=== PATIENT | female | born 1990 | race Two or more races ===

== ENCOUNTER 2021-04-07 22:53 | Inpatient (IN) | payer OTHER ==
[~2021-04-07] VITALS: Ht 162.6 cm; Wt 54.4 kg
--- NOTE | 2021-04-07 23:05 | NUR ---
pt bib ra is s/p sz. pt a/o c/o stomach ache. pt able to speak in complete sentences. able to steward. Dr. Cody at bedside for MSE.
[2021-04-07] MEDS ORDERED: IV NS 1000 ML 1,000 ML IV ONE (23:15)
[2021-04-07] MEDS ORDERED: HYDROMORPHONE 1 MG/1 ML DISP.SYRIN IV ONE (23:45)
[2021-04-07] MEDS ORDERED: ONDANSETRON 4 MG/2 ML VIAL IV ONE (23:45)
[2021-04-08 00:27] LABS: HEMATOCRIT 29.9 % (31.2-41.9); MEAN CORPUSCULAR HEMOGLOBIN 28.6 uug (24.7-32.8); MEAN CORPUSCULAR VOLUME 86.6 fL (75.5-95.3); PLATELET COUNT (AUTO) 462 K/uL (179-408)
--- NOTE | 2021-04-08 00:30 | NUR ---
pt taken to ct scan.
[2021-04-08 00:34] LABS: CARBON DIOXIDE 22 mmol/L (21-32); CHLORIDE 101 mmol/L (98-107); CREATININE 1.2 mg/dL (0.6-1.3); GLUCOSE 255 mg/dL (74-106); POTASSIUM 3.4 mmol/L (3.5-5.1); UREA NITROGEN, BLOOD 10 mg/dL (7-18)
[2021-04-08] MEDS ORDERED: HYDROMORPHONE 1 MG/1 ML DISP.SYRIN ONE ×5 (00:35→15:56)
[2021-04-08] MEDS ORDERED: ONDANSETRON 4 MG/2 ML VIAL ONE (00:35)
[2021-04-08] MEDS ORDERED: levETIRAcetam 500 MG/5 ML VIAL IV ONE (00:35)
[2021-04-08 00:39] LABS: ETHANOL < 3 MG/DL (0-0)
[2021-04-08 00:44] LABS: ALANINE AMINOTRANSFERASE 40 U/L (14-59); ALKALINE PHOSPHATASE 230 U/L (50-136); ASPARTATE AMINOTRANSFERASE 35 U/L (15-37); BILIRUBIN,DIRECT < 0.1 mg/dL (0.0-0.2); BILIRUBIN,TOTAL 0.4 mg/dL (0.2-1.0); TOTAL PROTEIN, SERUM 8.2 g/dL (6.4-8.2)
--- NOTE | 2021-04-08 00:44 | NUR ---
pt has returned from cat scan.
[2021-04-08 00:52] LABS: LIPASE 54 U/L (73-393)
[2021-04-08] MEDS: levETIRAcetam IV 1,000 MG in IV DEXTROSE 5% 100 ML IV SCH ×3 (00:52→20:34)
[2021-04-08] MEDS ORDERED: HYDROMORPHONE 1 MG/1 ML DISP.SYRIN IV ONE ×4 (01:45→15:30)
--- NOTE | 2021-04-08 02:07 | NUR ---
Dr Cody spoke with Dr. Hayes who will accept patient at [facility].
[2021-04-08] MEDS ORDERED: AZITHROMYCIN IV 500 MG in IV DEXTROSE 5% 250 ML IV ONE (02:15)
[2021-04-08] MEDS ORDERED: CEFTRIAXONE 1 G in IV DEXTROSE 5% 50 ML IV ONE (02:15)
[2021-04-08] MEDS ORDERED: AZITHROMYCIN 500MG/ D5W 250ML IVPB **ER PYXIS ONLY IV ONE (03:25)
[2021-04-08] MEDS ORDERED: CEFTRIAXONE /D5W 50ML IVPB **ER PYXIS IV ONE (03:25)
[2021-04-08] MEDS ORDERED: LORAZEPAM 2 MG/1 ML VIAL IV ONE (03:45)
--- NOTE | 2021-04-08 06:25 | NUR ---
after second liter of fluid pt blood pressure in the 90's. pt a/o denies pain at this time.
[2021-04-08] MEDS ORDERED: IV NS 1000 ML 1,000 ML IV ONE (06:30)
[2021-04-08] MEDS ORDERED: FENTANYL CITRATE 100 MCG/2 ML AMPUL IV ONE ×3 (07:15→11:15)
[2021-04-08] MEDS ORDERED: FENTANYL CITRATE 100 MCG/2 ML AMPUL ONE ×3 (07:30→11:21)
--- NOTE | 2021-04-08 08:30 | NUR ---
Discussed low BP with provider. Seems to be pt normal average reading. Pt continues to be A&Ox4, responding appropriately, fluently conversational. Denies any KUMAR, dizziness, blurred vision, anxiousness or drowsiness. Will continue to monitor pt and BP reading periodically. Pt also requires pain management. Provided heating pack and will monitor BP along with medication administration.
[2021-04-08] MEDS ORDERED: IV NORMAL SALINE 1000 ML BAG IV ONE (11:45)
[2021-04-08] MEDS ORDERED: Z GUARD REMEDY PASTE 57 GM TUBE TOP PRN (12:15)
[2021-04-08] MEDS ORDERED: MAGNESIUM HYDROXIDE 30 ML LIQUID UDC PO PRN (12:15)
[2021-04-08] MEDS ORDERED: ONDANSETRON 4 MG/2 ML VIAL IV PRN (12:15)
[2021-04-08] MEDS ORDERED: ACETAMINOPHEN 325 MG TABLET PO PRN (12:15)
--- NOTE | 2021-04-08 12:23 | NUR ---
Pt states better control of medication post dilaudid administration. IV fluids given to support BP. Pt alert, oriented, and responsive to stimuli.
[2021-04-08] MEDS ORDERED: ONDANSETRON 4 MG/2 ML VIAL IV ONE (15:30)
--- NOTE | 2021-04-08 16:03 | NUR ---
Report called to DORIS Golden. Pt will be going to Rm 319. Pt in stable condition. A&Ox4, conversational and responds appropriatelly.
--- NOTE | 2021-04-08 16:03 | NUR ---
received report from ER
--- NOTE | 2021-04-08 16:30 | NUR ---
Pt taken to 3rd floor via gurney, in stable condition. Hand-off at bedside with DORIS Golden. Pt ambulated from gurney in the hallway to the bed in the room with steady gait.
--- NOTE | 2021-04-08 16:30 | NUR ---
patient arrived via gurney from ER to room 319. patient is alert and oriented x4 able to make needs known. patient is able to ambulate with steady gate. respirations even and non-labored, no c/o sob at this time. lungs clear bilateral. patient currently on child monitor showing normal sinus rhythm. upon admission patient with v/s wnl. patient has a scar to mid abdomen and a colostomy to the right side of the abdomen stool is soft formed and brown in color, no other skin problems. patient is strong in all extremities, able to ambulate to the restroom. patient with c/o abdominal pain reminded patient she received pain medication one hour ago and it is too close to administration. belongings inventory completed. percocet and zofran medication vials taken to the pharmacy with appropriate form. all admission documentation completed. seizure precautions in place. room tour given to patient, reminded patient to call for assistance, call light within reach, side rails up x2.
[2021-04-08 16:35] VITALS: BP 98/58
[2021-04-08] MEDS: IV 1/2NS 1000 ML 1,000 ML IV PRN (16:43)
[2021-04-08] MEDS ORDERED: HYDR4TAB4 PO (17:00)
[2021-04-08] MEDS ORDERED: OXYC-133 PO (17:00)
[2021-04-08] MEDS ORDERED: ONDA4TAB5 PO (17:00)
[2021-04-08] MEDS ORDERED: ALPR1TAB2 PO (17:00)
[2021-04-08] MEDS: HYDROMORPHONE 1 MG/1 ML DISP.SYRIN IV PRN ×2 (17:14→23:09)
--- NOTE | 2021-04-08 19:30 | NUR ---
Received patient lying in bed. AAOx4. In no acute distress. Denies any SOB. Pain on abdominal area tolerated at this time. Patient received Dilaudid 1mg via IV around 1900. Colostomy on right side of abdomen. IV site on right AC intact and patent. IVF infusing. NSR on tele with HR of 67/min. Seizure precaution observed. Needs assessed and attended to. Safety measure initiated and call light within reached.
[2021-04-08 20:03] VITALS: BP 97/61
--- NOTE | 2021-04-08 20:15 | NUR ---
Patient still complaining of mid abdominal pain in spite of getting Dilaudid 1mg IV around 1900. Informed Dr. Rivera and review reconciled medication and order to give patient Dilaudid 1mg IV x1 now and Percocet 10/325mg PO every 4hrs PRN for pain. All order read back, verified and will carry out.
[2021-04-08] MEDS ORDERED: HYDROMORPHONE 1 MG/1 ML DISP.SYRIN IV STA (20:16)
[2021-04-09 00:08] VITALS: BP 91/51
[2021-04-09] MEDS: OXYCODONE/APAP 5-325 MG TABLET PO PRN ×4 (01:56→20:01)
[2021-04-09 04:03] VITALS: BP_SYST 101; BP_SYST 92; BP_DIAS 55; BP_DIAS 60
[2021-04-09] MEDS: HYDROMORPHONE 1 MG/1 ML DISP.SYRIN IV PRN ×3 (05:12→17:27)
--- NOTE | 2021-04-09 07:00 | NUR ---
AAOx4. In no acute distress. Denies any SOB. Dilaudid 1mg IV QID PRN given for complain of mid abd pain, as well as Percocet 10/325mg for breakthrough pain and with help. IV site on right AC intact and patent. IVF infusing. Needs attended to and met. Seizure precaution maintained. Safety measure maintained and call styles within reached.
--- NOTE | 2021-04-09 08:00 | NUR ---
Discussed plan of care with patient re: pain management. Seizure precaution implemented. PT verbalized understanding. Call light is within reach.
[2021-04-09] MEDS: levETIRAcetam IV 1,000 MG in IV DEXTROSE 5% 100 ML IV SCH (09:03)
[2021-04-09] MEDS: IV 1/2NS 1000 ML 1,000 ML IV PRN (09:16)
[2021-04-09 11:30] VITALS: BP 96/55
[2021-04-09 15:50] VITALS: BP 95/56
--- NOTE | 2021-04-09 19:00 | NUR ---
PT wanting to leave ama. Talked with pt re her seizures and that she is not cleared by neurologist. Notified pt that she can if she gets another seizure. Pt still wants to leave AMA. Pt's home meds at pharmacy no pharmacist available. Nursing supervisor patching called pharmacist and will comeback at 1999.
--- NOTE | 2021-04-09 19:50 | NUR ---
Received pt resting in bed and wanting to leave AMA. Risks and benefits explained, pt adamant in leaving. No acute distress noted. Pt signed AMA form. Safety measures maintained. Call light within reach. Will continue to monitor.
[2021-04-09 20:22] VITALS: BP 98/58
--- NOTE | 2021-04-09 20:30 | NUR ---
Pt refused routine dose of Keppra. Right AC IV, removed. Home meds from pharmacy and belongings given to patient. Pt stated that she will be picked up by her father. Pt left [facility] at 2030. KALEY accompanied pt to the lobby. Addendum: 04/09/21 at 2118 by Dianna Ramos RN Sherry Parekh.
[2021-04-09] MEDS ORDERED: levETIRAcetam 500 MG TABLET PO SCH (21:00)
== END 2021-04-09 21:19 | disposition left against medical advice (07) | DRG 53 ==
LOC: ER 22:55 → TRANSITION 04-08 15:34 → UNDOADMIN 04-08 15:34 → TELE3 04-08 16:04
PROVIDERS: ADMIT Internal Medicine; ATTEND Internal Medicine
DX: G40.909 Epilepsy, unspecified, not intractable, without status epilepticus (principal); K76.0 Fatty (change of) liver, not elsewhere classified; N13.30 Unspecified hydronephrosis; E87.6 Hypokalemia; R10.9 Unspecified abdominal pain; Z85.038 Personal history of other malignant neoplasm of large intestine; Z90.49 Acquired absence of other specified parts of digestive tract; Z93.3 Colostomy status; G89.4 Chronic pain syndrome; Z20.822 Contact with and (suspected) exposure to COVID-19
CPT/HCPCS: 36415; 70030-TC; 70450; 83605; 83690; 85025; 87040; 93005; A4663; G0378; G0480; J0456; J0696; J1170; J1953; J2405; J3010; J7030; J7060